=== PATIENT | male | born 1975 | race Two or more races ===

== ENCOUNTER 2016-09-10 15:39 | Emergency (ER) | payer SELFPAY ==
[~2016-09-10] VITALS: Ht 172.7 cm; Wt 77.1 kg
[2016-09-10 16:48] VITALS: BP 132/85
[2016-09-10] MEDS ORDERED: NEOMYCIN-BACITRACIN-POLYM UNITDOSE PKG TOP OINT TOP ONE (17:00)
[2016-09-10] MEDS ORDERED: cefTRIAXone SOD 1,000 MG VL IM ONE (17:00)
== END 2016-09-10 17:24 | disposition home or self-care (01) ==
LOC: ER 15:47
DX: S61.531A Puncture wound without foreign body of right wrist, initial encounter (principal); W54.0XXA Bitten by dog, initial encounter; Y93.K1 Activity, walking an animal; Y99.8 Other external cause status; Y92.89 Other specified places as the place of occurrence of the external cause
CPT/HCPCS: 96372; 99283; J0696